=== PATIENT | female | born 1985 | race Caucasian/White ===

== ENCOUNTER 2016-09-02 21:42 | Emergency (ER) | payer MEDICAID, OTHER ==
[~2016-09-02] VITALS: Ht 154.9 cm; Wt 65.9 kg
[2016-09-02 21:46] VITALS: Ht 154.9 cm; Wt 65.9 kg
[2016-09-02] MEDS ORDERED: IPRATROPIUM (NEB) 0.5 MG/2.5 ML AMP INH STA ×2 (22:12→23:31)
[2016-09-02] MEDS ORDERED: METHYLPREDNISOLONE 125 MG INJ IV STA (22:12)
[2016-09-02] MEDS ORDERED: LEVALBUTEROL (NEB) 1.25 MG/0.5 ML AMP INH STA ×2 (22:12→23:31)
[2016-09-02] MEDS ORDERED: SOD CHLORIDE 0.9% 1,000 ML IV STA (22:12)
[2016-09-02] MEDS ORDERED: ACETAMINOPHEN 500 MG TAB PO STA (22:19)
--- NOTE | 2016-09-02 23:51 | ERD ---
ER Documentation Chief Complaint Date/Time DATE: 09/02/16 TIME: 23:48 Chief Complaint COUGH X6 DAYS FEVER TODAY HPI This is a 31-year-old female with a history of asthma presenting to the emergency department complaining of cough, shortness of breath for the past 6 days. Patient stated that she started having fever chest pain today. She rates this moderate in severity patient states that she used her albuterol inhaler 4 hours prior to being seen. She denies taking any other medications. ROS All systems reviewed and are negative except as per history of present illness. Medications Home Meds Active Scripts Albuterol Sulfate* (Proair HFA*) 8.5 Gm Hfa.aer.ad, 2 PUFF INH Q4H Y for WHEEZING AND SOB, #1 INHALER Prov:CLAUDIA NICHOLAS PA-C 09/03/16 Prednisone* (Prednisone*) 20 Mg Tab, 40 MG PO DAILY for 4 Days, TAB Prov:CLAUDIA NICHOLAS PA-C 09/03/16 Azithromycin* (Zithromax*) 250 Mg Tablet, 250 MG PO DAILY for 4 Days, TAB Prov:CLAUDIA NICHOLAS PA-C 09/03/16 Allergies Allergies: Coded Allergies: No Known Allergy (Unverified , 09/02/16) PMhx/Soc History of Surgery: No (DENIES MEDICAL AND SURGICAL HX.) Hx Alcohol Use: No Hx Substance Use: No Hx Tobacco Use: No Smoking Status: Never smoker Physical Exam Vitals Vital Signs Date Time Temp Pulse Resp B/P Pulse Ox O2 Delivery O2 Flow Rate FiO2 09/02/16 23:58 120 20 94 21 09/02/16 23:15 Nasal Cannula 2 09/02/16 22:37 116 20 95 Nasal Cannula 2.0 09/02/16 21:46 99.9 117 28 115/64 90 Physical Exam GENERAL: WD/WN, in no apparent distress, non-toxic appearing HENT: NC/AT, bilateral TM has good cone of light EYES: Conjunctiva normal NECK: Supple PULM: Patient was placed on oxygen in triage for low pulse ox of 90% Inspiratory and expiratory wheezing. No rales, crackles, or rhonchi heard. No tripod position, normal labored breathing, no stridor, no evidence of using accessory muscles. CV: Good capillary refill, good S1 and S2, no murmurs appreciated GI: Non-distended, no guarding BACK: No masses. EXT: No clubbing, cyanosis, or edema. NEURO: Moves on all fours SKIN: intact, no cyanosis. PSYCH: Normal mood Results 24 hrs Current Medications Medications (Trade) Dose Ordered Sig/Saritha Route PRN Reason Start Time Stop Time Status Last Admin Dose Admin Levalbuterol (Xopenex Neb) 5 mg ONCE STAT INH 09/02/16 22:12 09/02/16 22:19 DC 09/02/16 22:37 Ipratropium [place] (Atrovent 0.02% (Neb)) 1 mg ONCE STAT INH 09/02/16 22:12 09/02/16 22:19 DC 09/02/16 22:37 Methylprednisolone Sodium Succinate 125 mg 125 mg ONCE STAT IV 09/02/16 22:12 09/02/16 22:19 DC 09/02/16 22:49 Sodium Chloride (NS) 1,000 ml @ 1,000 mls/hr Q1H STAT IV 09/02/16 22:12 09/02/16 23:11 DC 09/02/16 22:49 Acetaminophen (Tylenol Tab) 1,000 mg ONCE STAT PO 09/02/16 22:19 09/02/16 22:20 DC 09/02/16 22:49 Levalbuterol (Xopenex Neb) 5 mg ONCE STAT INH 09/02/16 23:31 09/02/16 23:32 DC 09/02/16 23:58 Ipratropium [place] (Atrovent 0.02% (Neb)) 1 mg ONCE STAT INH 09/02/16 23:31 09/02/16 23:33 DC 09/02/16 23:57 Azithromycin (Zithromax) 500 mg ONCE STAT PO 09/02/16 23:57 09/02/16 23:58 DC Procedures/[facility] 31-year-old female with history of asthma presenting to the emergency department with asthma exacerbation and possible pneumonia. On examination, patient had wheezing and chest tightness. Her pulse ox was 90% therefore she was placed on 2L oxygen, she was 94% on oxygen. RT was consulted and patient was given 5 mg continuous treatment of Xopenex and 1ng Atrovent for 1 hour. She was given 1 L fluids and 125 mg of Solu-Medrol. I have reassessed her and she continued to have trouble breathing but pulse ox improved to 97%, patient is receiving another 5mg breathing treatment with Xopenex. I suspect she will be stable to go home however [employer] Dinora Jose Alfredo will reassess her after second treatment to make sure she is still stable. CXR was done and radiologist stated : "bilateral lower lung zone atelectasis versus infiltrates. Clinical correlation is necessary." Patient will empirically be treated for pneumonia with azithromax. Azithromax 500mg was given to her in the ED. Prescriptions prednisone 40mg x 4 days, azithromax 250mg x 4 days starting tomorrow, pro-air. stable for discharge home. strict precautions were given. she understood and agreed with plan Departure Diagnosis: Primary Impression: Asthma exacerbation Additional Impression: Pneumonia Condition: Stable CLAUDIA NICHOLAS PA-C September 02, 2016 23:51
--- NOTE | 2016-09-02 23:55 | RADRPT ---
PROCEDURE: CHEST - 1 VIEW CLINICAL INDICATION: 31-year-old female with shortness of breath. TECHNIQUE: A single frontal AP upright portable view of the chest was performed. The images were reviewed on a PACS workstation. COMPARISON: None. FINDINGS: The cardiomediastinal silhouette has a normal appearance. The lung apices are incompletely visualize d. There is bilateral lower lung zone atelectasis versus infiltrates. The pulmonary vascularity is within normal limits. There is no evidence for pneumothorax or pneumomediastinum. The osseous struct ures are intact. IMPRESSION: Bilateral lower lung zone atelectasis versus infiltrates. Clinical correlation is necessary. .Santiago Allison MD, Date Time Electronically viewed and signed by .Santiago Allison MD, on 09/02/2016 23:55 .Carlo
[2016-09-02] MEDS ORDERED: AZITHROMYCIN 250 MG TAB PO STA (23:57)
[2016-09-03] MEDS ORDERED: ALBU8.5H3 INH (00:07)
[2016-09-03] MEDS ORDERED: PRED20TA PO (00:07)
[2016-09-03] MEDS ORDERED: AZIT250T94 PO (00:07)
[2016-09-03 02:15] VITALS: BP 108/70; PULSE 100; RESP 20; TEMP 98.9
--- NOTE | 2016-09-03 02:17 | EN ---
Date/Time of Note Date/Time of Note DATE: 09/03/16 TIME: 02:04 ER Progress Note Signed out by MONROE Anderson, patient was reassessed after breathing treatment , lungs were clear, patient verbalized feeling much better, oxygenation is 95%. Patient was stable upon discharge, patient was discharged according to MONROE Anderson instructions. GEMA NIELSEN NP September 03, 2016 02:17
== END 2016-09-03 02:15 | disposition home or self-care (01) ==
LOC: FTE 21:42
DX: J45.901 Unspecified asthma with (acute) exacerbation (principal); J18.9 Pneumonia, unspecified organism
CPT/HCPCS: 71010; 94644; 94645; 96374; J2930; J7030; Z7502; Z7610

== ENCOUNTER 2017-10-03 19:59 | Emergency (ER) | END 2017-10-03 22:31 | disposition home or self-care (01) ==